=== PATIENT | female | born 1985 | race Asian ===

== ENCOUNTER 2022-03-01 13:46 | Emergency (ER) | payer OTHER, SELFPAY ==
--- NOTE | ~2022-03-01 | CT_ITS ---
EXAMINATION: CT abdomen pelvis w con DATE: 03/01/2022 16:28 INDICATION: lower back/ left lower abd pain TECHNIQUE: Computed tomography (CT) of the abdomen and pelvis was performed with 100 mL Omnipaque-350 intravenous contrast. Automated exposure control and iterative reconstruction technique were employe d. The dose-length product was 177.33 mGy-cm. COMPARISON: None. FINDINGS: Lower thorax: Unremarkable Liver: Mild hepatomegaly Biliary/Gallbladder: Gallbladder is normal. No bile duct dilation. Pancreas: No mass or duct dilation. Spleen: Normal. Adrenals:No mass. Kidneys: No mass, stone, or hydronephrosis. GI tract: Moderate distal esophageal and gastric wall edema. No small or large bowel dilation. Normal appendix. Mesentery/Peritoneum: No ascites, mass, or free air. Retroperitoneum: No mass. Pelvis: Pelvic organs are within normal limits. Soft Tissues: Soft tissues and body wall unremarkable. Bones: No acute osseous finding. IMPRESSION: Esophagitis/gastritis. Mild hepatomegaly. No other acute abdominopelvic process detected. Reviewed, dictated and finalized at location K. ERCIAL SALES CONSULTANT
[2022-03-01 13:47] VITALS: BP 138/83; PULSE 115; RESP 18; TEMP 37.1; O2SAT 100
[2022-03-01 14:14] LABS: Appearance Urine Clear (Clear); Bilirubin Urine Negative (Negative); Blood Urine Negative (Negative); Color Urine Yellow (Yellow); Glucose Urine UA Negative (Negative); Ketones Urine Negative (Negative); Leukocyte Esterase Ur Negative LEU/UL (Negative); Nitrate Urine Negative (Negative); Protein Urine Negative (Negative); Urobilinogen Urine 0.2 mg/dL (<2.0); pH Urine 6.5 (5.0-9.0)
[2022-03-01 14:20] LABS: Add Urine Microscopic? NO
[2022-03-01 14:20] LABS: Alanine Aminotransferase 25 U/L (6-35); Albumin Level 4.7 g/dL (3.5-5.1); Alkaline Phosphatase 71 U/L (38-126); Anion Gap 12 mmol/L (8-16); Aspartate Amino Transferase 25 U/L (14-36); Basophils Absolute Auto 0.1 K/mm3 (0.0-0.1); Basophils Percent Auto 0.5 % (0.2-1.2); Bilirubin,Total 0.5 mg/dL (0.2-1.3); Blood Urea Nitrogen 10 mg/dL (7-17); Calcium 9.1 mg/dL (8.4-10.2); Carbon Dioxide 26 mmol/L (22-30); Chloride 102 mmol/L (98-107); Eosinophils Absolute Auto 0.3 K/mm3 (0-0.3); Eosinophils Percent Auto 2.6 % (0-4.4); Estimated Glomerular Filt Rate > 60; Glucose 103 mg/dL (65-110); Hematocrit 40.1 % (37.0-47.0); Hemoglobin 13.1 g/dL (12.0-15.0); Immature Granulocyte Absolute 0.03 K/mm3 (0.00-0.031); Immature Granulocyte Percent A 0.3 % (0-0.5); Lipase 98 U/L (23-300); Lymphocytes Absolute Auto 2.93 K/mm3 (0.9-3.2); Lymphocytes Percent Auto 29.6 % (18.3-44.2); Mean Corpuscular HGB Conc 32.7 g/dl (32-36); Mean Corpuscular Hemoglobin 30.3 pg (26-34); Mean Corpuscular Volume 92.8 fl (80-100); Mean Platelet Volume 10.9 fl (7.4-10.4); Monocytes Absolute Auto 0.4 K/mm3 (0.1-0.6); Monocytes Percent Auto 4.4 % (2.6-8.5); Neutrophils Absolute Auto 6.2 K/mm3 (1.3-6.7); Neutrophils Percent Auto 62.6 % (45.5-73.1); Platelet Count Result 247 k/mm3 (150-375); Potassium 3.9 mmol/L (3.4-5.0); Red Blood Count 4.32 M/mm3 (4.2-5.4); Sodium 140 mmol/L (137-145); White Blood Count 9.9 K/mm3 (4.5-10.0)
--- NOTE | 2022-03-01 14:59 | ED.ABDPAIN ---
HPI - Abdominal Pain General Chief Complaint: Abdominal Pain <CARYN Galan Last Filed: 03/01/22 20:26> Stated Complaint: abd & lower back pain <CARYN Galan Last Filed: 03/01/22 20:26> Time Seen by Provider: 03/01/22 14:37 <CARYN Galan Last Filed: 03/01/22 20:26> Source: patient <CARYN Galan Last Filed: 03/01/22 20:26> Mode of arrival: ambulatory <CARYN Galan Last Filed: 03/01/22 20:26> Limitations: no limitations <CARYN Galan Last Filed: 03/01/22 20:26> History of Present Illness HPI narrative: Patient is a 36-year-old female who presents the ED with report of lower back and lower abdominal pain. Patient reports having chronic tailbone pain since having a child 1 year ago. She has had worsening pain in her lower back, radiating around to her abdomen over the last 4 days. She has been taking naproxen for her tailbone pain, but denies any relief. She denies any other symptoms, denies nausea, vomiting, diarrhea, constipation, fevers, cough or cold symptoms, dysuria, hematuria, incontinence, numbness, saddle anesthesia. <CARYN Galan Last Filed: 03/01/22 20:26> Related Data Allergies/Adverse Reactions: Allergies Allergy/AdvReac Type Severity Reaction Status Date / Time No Known Allergies Allergy Verified 03/01/22 14:40 <CARYN Galan Last Filed: 03/01/22 20:26> Review of Systems Review of Systems: CONSTITUTIONAL: Denies fever, chills, or sweats. ENT: Denies rhinorrhea, congestion, sore throat. CARDIOVASCULAR: Denies chest pain. RESPIRATORY: Denies cough or dyspnea. GASTROINTESTINAL: Reports lower abdominal pain. Denies incontinence, constipation, nausea, vomiting, or diarrhea. GENITOURINARY: Denies dysuria or hematuria. MUSCULOSKELETAL: Reports lower back pain. NEUROLOGIC: Denies tingling, numbness, or weakness. <Rosalind Salmeron PA-C - Last Filed: 03/01/22 20:26> All systems reviewed & are unremarkable except as noted in HPI and below <Rosalind Salmeron PA-C - Last Filed: 03/01/22 20:26> PMFSH Past Medical History Medical History: Medical History (Updated 03/02/22 @ 00:00 by Yonas Tobar) Coccygeal pain <Rosalind Salmeron PA-C - Last Filed: 03/01/22 20:26> Surgical History Surgical History: Surgical History (Updated 03/01/22 @ 15:02 by Rosalind Salmeron PA-C) History of section <Rosalind Salmeron PA-C - Last Filed: 03/01/22 20:26> Social History Social History: Social History (Updated 03/01/22 @ 15:03 by Rosalind Salmeron PA-C) Smoking status: Never smoker <Rosalind Salmeron PA-C - Last Filed: 03/01/22 20:26> Exam Narrative: GENERAL: Well appearing, well-nourished, non-toxic, in no acute distress. HEAD: Normocephalic, atraumatic. NECK: Supple. No adenopathy, no masses. RESPIRATORY: Airway patent, respirations nonlabored. Clear to auscultation bilaterally, no rales, rhonchi, wheezing. CARDIOVASCULAR: Regular rate and rhythm without murmurs, rubs, or gallops. Peripheral pulses 2+ and equal bilaterally. ABDOMINAL: Soft, minimal epigastric and left lower quadrant abdominal tenderness, no rebound or guarding. Nondistended, no hepatosplenomegaly. Normoactive BS. MUSCULOSKELETAL: Moves all extremities. Strength/ROM intact without gross deformities. Mild tenderness to palpation lumbosacral region. No midline lumbar spinal tenderness. Strength 5 out of 5 in lower extremities bilaterally. SKIN: Warm, dry, normal color. No rashes. NEURO: A&O X3. Speech clear. Cranial nerves II-XII grossly intact. Steady gait. No ataxic movements. PSYCHIATRIC: Appropriate mood and affect. Normal interaction. <Rosalind Salmeron PA-C - Last Filed: 03/01/22 20:26> Course CHIEF SUBSTATION OPERATOR/PA Physician Supervision For this patient encounter, I reviewed the CHIEF SUBSTATION OPERATOR or PA documentation, treatment plan,
[2022-03-01] MEDS: BELLADONNA ALK/PHENOB ELIX 10 ML, MAG HYDROX/ALUMINUM HYD/SIMETH 30 ML, LIDOCAINE HCL 2... PO (17:08)
[2022-03-01 18:23] VITALS: BP 112/79; PULSE 75; RESP 18; O2SAT 99
== END 2022-03-01 18:25 | disposition home or self-care (01) ==
PROVIDERS: Emergency Medicine; Emergency Provider Emergency Medicine; PCP Family Medicine
DX: M54.50 Low back pain, unspecified (principal); K29.00 Acute gastritis without bleeding
CPT/HCPCS: 36415; 74177; 80053; 81003; 81025; 83690; 85025; 99284; A9270; Q9967

== ENCOUNTER → 2022-04-01 15:15 | Outpatient (CLI) | payer OTHER, SELFPAY ==
--- NOTE | ~2022-04-01 | US_ITS ---
EXAMINATION: US soft tissue LE RT DATE: 04/01/2022 15:41 INDICATION: MASS OF LE . TECHNIQUE: Grayscale and Doppler ultrasound images of the right leg were obtained. COMPARISON: None. FINDINGS: Sonographic interrogation of the area of concern in the right anterior thigh reveals a 1.7 x 2.5 cm fascicle of the otherwise normal-appearing subcutaneous fat. No concerning solid or cystic l esions detected. IMPRESSION: The palpable abnormality corresponds to a normal-appearing fascicle of subcutaneous fat. Reviewed, dictated and finalized at location K. CONDUCTOR WAFERS ETCH OPERATOR IMPRESSION: The palpable abnormality corresponds to a normal-appearing fascicle of subcutan eous fat.
== END ==
PROVIDERS: PCP Family Medicine; Visit Provider Family Medicine
DX: R22.41 Localized swelling, mass and lump, right lower limb (principal)
CPT/HCPCS: 76882

== ENCOUNTER 2022-09-04 15:10 | Emergency (ER) | payer OTHER, SELFPAY ==
--- NOTE | ~2022-09-04 | XR_ITS ---
EXAMINATION: XR chest 2V DATE: 09/04/2022 15:34 INDICATION: Cough and shortness of breath TECHNIQUE: PA and lateral views of the chest were obtained. COMPARISON: None FINDINGS: The lungs are clear with no focal airspace opacities, pulmonary edema, pleural effusion or pneumothor ax. The cardiomediastinal silhouette is normal. Visualized bones and soft tissues are unremarkable. IMPRESSION: 1. No acute cardiopulmonary disease. Reviewed, dictated and finalized at location A.
--- NOTE | 2022-09-04 15:16 | ED.URI ---
HPI - URI/Sore Throat General Chief Complaint: Upper Respiratory Infection Stated Complaint: SORE THROAT/CONGESITON/RUNNY NOSE/BODY ACHES/SOB Time Seen by Provider: 09/04/22 15:16 Source: patient Mode of arrival: ambulatory Limitations: no limitations History of Present Illness HPI Narrative: Patient is a 36-year-old female who presents with congestion, cough, sore throat, runny nose, body aches for almost 2 weeks. Reports tested positive for flu B last week. Patient reports worsening symptoms of productive cough and shortness of breath with coughing fits primarily in the morning. Patient has been using [id number] medications with mild relief. Patient states over the 2 weeks symptoms have waxed and waned but has never felt 100%. Denies any fever, chills, nausea, vomiting, diarrhea. Related Data Allergies Allergy/AdvReac Type Severity Reaction Status Date / Time No Known Allergies Allergy Verified 09/04/22 15:19 Review of Systems Review of Systems: All systems reviewed & are unremarkable except as noted in HPI and below Constitutional: Constitutional: Reports body ache(s), Denies chills, Denies fatigue, Denies fever(s), Denies headache(s), Denies malaise and Denies weakness Eyes: Eyes: Denies blurry vision, Denies itchy eyes and Denies loss of vision ENT: Denies otalgia, Denies headache(s), Reports nasal congestion, Reports nasal discharge, Denies sinus pain and Reports sore throat Cardiovascular: Cardiovascular: Denies chest pain, Denies irregular heart rhythm and Denies dyspnea Respiratory: Respiratory: Reports cough and Reports dyspnea on exertion Gastrointestinal: Gastrointestinal: Denies abdominal pain, Denies diarrhea, Denies nausea and Denies vomiting Musculoskeletal: Musculoskeletal: Denies back pain, Denies myalgias and Denies arthralgias Integumentary/Breasts: Skin/Breast: Denies pruritus and Denies rash Neurologic: Denies headache(s), Denies loss of vision and Denies weakness Psychiatric: Psychiatric: Reports no additional psychiatric complaints Endocrine: Endocrine: Denies fatigue Allergic/Immunologic: Allergic/Immunologic: Denies itchy eyes PMFSH Past Medical History Medical History (Updated 09/04/22 @ 15:30 by Evon Zaragoza APRN) Coccygeal pain Surgical History Surgical History (Updated 03/01/22 @ 15:02 by Rosalind Salmeron PA-C) History of section Social History Social History (Updated 03/01/22 @ 15:03 by Rosalind Salmeron PA-C) Smoking status: Never smoker Comments At time of signature, agree with nursing past medical, surgical, social and family history. There is no relevant family history pertinent to the presenting complaint. Exam Const: General: cooperative, healthy appearing, comfortable, no acute distress and well nourished Nutritional Appearance: well nourished Orientation/consciousness: patient oriented x3 Limitations: no limitations HENMT: Head: normal to inspection, normocephalic and atraumatic Ears: hearing grossly normal bilaterally, external ears normal, TM's normal bilaterally, EAC's normal and no periauricular adenopathy Face/Nose/Sinus: Normal external nose present, Abnormal mucous membranes and turbinates present erythematous bilateral and diffuse, normal facial exam, sinuses nontender and face symmetric Face and sinus: normal facial exam, sinuses nontender and face symmetric Mouth: Yes Normal oral and palatal mucosa present, Yes lip normal, Yes tongue normal, Yes Normal salivary glands and ducts present, Yes oropharynx normal and Yes moist mucous membranes Teeth and gingiva: dentition normal Throat: posterior oropharynx normal, tonsils normal and uvula midline Eyes: General: appearance normal, both eyes and all related structures Alignment and Position: alignment normal and position normal Periorbital: periorbital findings normal Eyelids: eyelids normal Pupils: Equal, round and reactive pupils present Neck: Neck: norm
[2022-09-04 15:21] VITALS: BP 110/84; PULSE 95; RESP 16; TEMP 36.8; O2SAT 99
== END 2022-09-04 15:54 | disposition home or self-care (01) ==
PROVIDERS: Emergency Provider Nurse Practitioner Family; PCP Family Medicine
DX: J06.9 Acute upper respiratory infection, unspecified (principal); R05.9 Cough, unspecified
CPT/HCPCS: 71046; 99213; G0463

== ENCOUNTER 2024-05-05 18:40 | Emergency (ER) | payer OTHER, SELFPAY ==
[2024-05-05 18:53] VITALS: BP 103/72; PULSE 66; RESP 16; TEMP 36.4; O2SAT 100
--- NOTE | 2024-05-05 19:09 | ED.FEMALEGU ---
HPI - Female Genitourinary General Chief complaint: Urogenital-Female Stated complaint: uti symptoms Time Seen by Provider: 05/05/24 18:46 Source: patient Mode of arrival: ambulatory Limitations: no limitations History of Present Illness HPI Narrative: Bay is a 38-year-old female patient presenting to the clinic today with complaints of possible urinary tract infection. She reports she has noticed today some urinary frequency. Also reports a very foul odor coming from either her urine or vagina x1 week. States at times she can smell the odor with her clothes on. Denies any vaginal discharge other than her recent menstrual. States she recently had a miscarriage back in February. Last menstrual period was April 26, 2024. She has not been sexually active since her last menstrual period. Denies any new partners. Is in a monogamous relationship and is not concerned about STIs. Related Data Allergies Allergy/AdvReac Type Severity Reaction Status Date / Time No Known Allergies Allergy Verified 05/05/24 18:52 Review of Systems Review of Systems: Pertinent positives per HPI. Patient denies any fever, chills, rash, headache, visual changes, dizziness, cough, runny nose, sore throat, shortness of breath, chest pain, palpitations, nausea, vomiting, diarrhea, constipation, abdominal pain, or any urinary issues. PMFSH Past Medical History Medical History Coccygeal pain Surgical History Surgical History History of section Social History Social History Smoking status: Never smoker Comments At the time of my signature, I reviewed and agree with the nursing past medical, surgical, social, and family history. There is no relevant family history pertinent to the patient complaint. Exam Narrative: General: Well-developed, well nourished, in no apparent distress Head: Normocephalic, atraumatic. Cardio: Regular rate and rhythm, s1 and s2 normal, no murmur appreciated. Resp: Clear to auscultation bilaterally, no rhonchi, rales, wheezing or rubs. Abdomen: Soft, pliable, bowel sounds present in all quadrants, non-tender to palpation, no CVAT tenderness. : Pelvic exam performed with (Lia ARREGUIN) at bedside. Verbal consent obtained from patient. Normal external female genitalia without lesions or masses, Urinary meatus: patent without discharge, Vagina: No lesions or masses, white vaginal discharge noted Cervix: pink without mass, lesions, whitish tinged brown discharge noted coming from the cervical os Adnexa: without palpable mass or tenderness. Course Course Emergency Course: Portions of this record may have been created with voice recognition software. Level of Care: Express Care Visit Vital Signs Vital signs: Vital Signs Temperature 36.4 C 05/05/24 18:53 Pulse Rate 66 05/05/24 18:53 Respiratory Rate 16 05/05/24 18:53 Blood Pressure 103/72 05/05/24 18:53 Pulse Oximetry 100 05/05/24 18:53 Oxygen Delivery Room Air 05/05/24 18:53 Temperature 36.4 C 05/05/24 18:53 Pulse Rate 66 05/05/24 18:53 Respiratory Rate 16 05/05/24 18:53 Blood Pressure 103/72 05/05/24 18:53 Pulse Oximetry 100 05/05/24 18:53 Oxygen Delivery Room Air 05/05/24 18:53 Vital signs reviewed MDM - Female Genitourinary MDM Narrative Medical decision making narrative: At the time of visit patient is resting comfortably on the exam table. Patient appears to be nontoxic. Labs: Urinalysis is negative for any blood or protein. Shows trace of leukocytes. We will send urine for culture. Bedside test was negative. Gonorrhea, chlamydia, Trichomonas, bacterial vaginosis, and genital culture swabs was obtained and sent to the lab Plan: I suspect patient likely has bacterial vaginosis. Prescription for Flagyl was sent to the pharmacy. Patient requesting STI testing after interview-vaginal swabs were sent to the lab. We will send urine for culture and if this comes back positive for any invading bacteria we will place patient on an antibiotic at that time. Supportive measures were discussed with the patient and they voiced understanding discharge instructions and agrees to treatment plan. Return precautions reviewed Differential Diagnosis Differential diagnosis: Likely urinary tract infection, bacterial vaginosis, trichomoniasis, cervicitis, ovarian cyst, vaginitis, ruptured ovarian cyst, cystitis and other Discharge Plan Discharge Clinical Impression: Vaginal odor, Urinary frequency Patient Disposition: Home, Self-Care Condition: Stable Instructions: Antibiotic Form, Vaginal Discharge (ED), Urinary Urgency and Frequency (DC) Additional Instructions: Urinalysis shows a trace of bacteria. We will send urine for culture and if this comes back positive we will contact him place you on an antibiotic for a urinary tract infection Increase fluids and stay well hydrated I suspect he likely had bacterial vaginosis so I will place you on Flagyl to treat this We have tested you for STIs in the clinic today. Chlamydia, gonorrhea, Trichomonas, and a genital culture was sent to the lab Avoid any sexual activity- includes oral, anal, or vaginal intercourse until you get results back and have completed any additional recommended treatment regimens. We will contact you if testing is positive and make sure your treatment was appropriate for the type of STI. If symptoms worsen after treatment recommend reevaluation with your PCP or life consultant Patient Language: Maldivian Prescriptions: New metronidazole 500 mg tablet 500 mg PO Q12H 7 Days Qty: 14 0RF Follow-up/Referrals: Nina,Jose Ramon Florence MD [Primary Care Provider] - Time of Disposition: 19:47 [facility] NIHSS nursing documentation: reviewed/agree
[2024-05-05 19:43] LABS: BEDSIDEPREGUCG Negative (Negative); EDUAAPPEAR Clear; EDUABILI Negative (Negative); EDUABLOOD Negative (Negative); EDUACOLOR1 Yellow; EDUAGLUCOSE Negative (Negative); EDUAKETONE Negative (Negative); EDUALEUKO Trace (Negative); EDUANITRATE Negative (Negative); EDUAPH 6.5; EDUAPROTEIN Negative (Negative); EDUAUROBILI 0.2
[2024-05-06 19:10] LABS: Chlamydia trachomatis NOT DETECTED (NOT DETECTE); Neisseria gonorrhoeae PCR NOT DETECTED (NOT DETECTE)
[2024-05-08 15:13] LABS: Bacterial Vaginosis NEGATIVE (NEGATIVE)
== END 2024-05-05 19:56 | disposition home or self-care (01) ==
PROVIDERS: Emergency Provider Nurse Practitioner Family; PCP Family Medicine
DX: R35.0 Frequency of micturition (principal); N89.8 Other specified noninflammatory disorders of vagina
CPT/HCPCS: 81003; 81025; 81513; 87070; 87086; 87491; 87591; 87661; 99213; G0463

== ENCOUNTER 2024-08-24 17:08 | Emergency (ER) | payer OTHER, SELFPAY ==
--- NOTE | 2024-08-24 17:18 | ED.FEMALEGU ---
HPI - Female Genitourinary General Chief complaint: Urogenital-Female Stated complaint: Uti Symptoms Time Seen by Provider: 08/24/24 17:24 Source: patient, RN notes reviewed and old records reviewed Mode of arrival: ambulatory Limitations: no limitations History of Present Illness HPI Narrative: 38-year-old female presents to the [facility] with concerns for a UTI. Patient reports since Wednesday frequency, urgency, abnormal odor. Did use a vaginal wash externally which help with the odor but still having some frequency urgency burning but urinating relieves the pain. Reports that she took a azo test which made her concern for UTI Had similar symptoms a couple of months ago and was told she had a yeast infection. Onset (ago): day(s) (3) Related Data Allergies Allergy/AdvReac Type Severity Reaction Status Date / Time No Known Allergies Allergy Verified 08/24/24 17:29 Review of Systems Review of Systems: All systems reviewed & are unremarkable except as noted in HPI and below Constitutional: Constitutional: Reports no additional constitutional complaints ENT: Reports system reviewed and no additional complaints, except as documented Cardiovascular: Cardiovascular: Reports no additional cardiovascular complaints, Denies chest pain and Denies dyspnea Respiratory: Respiratory: Reports no additional respiratory complaints, Denies chest congestion, Denies cough and Denies dyspnea Genitourinary: Genitourinary: Reports as per HPI Musculoskeletal: Musculoskeletal: Reports no additional musculoskeletal complaints Integumentary/Breasts: Skin/Breast: Reports system reviewed and no additional complaints, except as docu PMFSH Past Medical History Medical History Coccygeal pain Surgical History Surgical History History of section Social History Social History Smoking status: Never smoker Comments At the time of my signature, I reviewed and agree with the nursing past medical, surgical, social, and family history. There is no relevant family history pertinent to the patient complaint. Exam Const: General: cooperative, healthy appearing, comfortable, no acute distress, well developed, alert and well nourished Nutritional Appearance: well nourished Orientation/consciousness: patient oriented x3 Limitations: no limitations HENMT: Head: normal to inspection Eyes: General: appearance normal, both eyes and all related structures Alignment and Position: alignment normal Neck: Neck: normal visual inspection, full ROM, no lymphadenopathy and no meningeal signs Chest: Chest palpation & inspection: normal inspection of the chest Resp: Effort & Inspection: normal respiratory effort and able to speak in complete sentences Auscultation: clear to auscultation bilaterally, no crackles, no rales, no rhonchi and no wheezes Cardio: Rate: regular rate GI: GI Palp: No abdominal tenderness Skin: General skin exam: normal color and no rashes or lesions noted Neuro: General: patient oriented x3, gait normal, moves all extremities and no meningeal signs Cognition (Neuro): normal cognition Speech: normal speech Gait exam (Neuro): Normal gait present Extrem: General: normal to inspection, full ROM, capillary refill normal and normal gait Psych: Appearance: grossly normal and well kempt Mental Status: mental status grossly normal Speech and movement: Normal speech and movement present and Clear speech present Affect: normal affect Attitude: cooperative Course Course Level of Care: Express Care Visit Vital Signs Vital signs: Vital Signs Temperature 98.3 F 08/24/24 17:19 Pulse Rate 88 08/24/24 17:19 Respiratory Rate 16 08/24/24 17:19 Blood Pressure 100/68 08/24/24 17:19 Pulse Oximetry 100 08/24/24 17:19 Temperature 98.3 F 08/24/24 17:19 Pulse Rate 88 08/24/24 17:19 Respiratory Rate 16 08/24/24 17:19 Blood Pressure 100/68 08/24/24 17:19 Pulse Oximetry 100 08/24/24 17:19 Oxygen Delivery Room Air 08/24/24 17:20 Reviewed MDM - Female Genitourinary MDM Narrative Medical decision making narrative: Patient sitting in exam room. Nontoxic vitals stable. Patient presents with concerns for UTI due to azo test. Urine dip is negative. Discussed results with patient, patient is concerned that she might have a yeast infection states that she had the same exact symptoms back in February. Patient has a call out to her wheel polisher provider Will treat with Diflucan after discussion with patient. Will encourage patient to follow-up with wheel polisher Discharge instructions reviewed with patient, as well as provided in writing per nursing staff. The instructions also include specific and strict return/GO TO THE ER as well as f/u information. All questions have been answered, and the patient deny any further questions with discharge and discharge plan. Some parts of this dictation were generated by voice recognition software and may contain typographical and/or grammatical inaccuracies. Differential Diagnosis Differential diagnosis: Likely urinary tract infection, bacterial vaginosis, trichomoniasis and other (yeast) Lab Data Labs: Lab Results 08/24/24 Range/Units 17:24 POC Urine Color Yellow POC Urine Clarity Clear POC Urine pH 7.0 POC Ur Specif [place] 1.015 POC Urine Protein Negative (Negative) POC Ur Glucose (UA) Negative (Negative) POC Urine Ketones Negative (Negative) POC Urine Blood Negative (Negative) POC Urine Nitrite Negative (Negative) POC Urine Bilirubin Negative (Negative) POC Urine Urobilinogen 0.2 POC U Leukocyte Esteras Negative (Negative) Review Critical Care Time Critical Care Time Critical Care Time: No Discharge Plan Discharge Clinical Impression: Frequency of urination Patient Disposition: Home Condition: Stable Instructions: Yeast Infection (ED) Additional Instructions: Follow-up with primary care provider as needed Follow-up with wheel polisher provider. Patient Language: Vietnamese Prescriptions: New fluconazole 150 mg tablet 150 mg PO ONCE Qty: 1 0RF Rx Instructions: as a single dose No Action metronidazole 500 mg tablet 500 mg PO Q12H 7 Days Qty: 14 0RF fluconazole 150 mg tablet 150 mg PO ONCE Qty: 2 0RF Rx Instructions: as a single dose after antibiotics are complete. If symptoms persist, take second dose 3 days later. Follow-up/Referrals: PHYSICIAN,HAIRSPRING VIBRATOR [Primary Care Provider] - Time of Disposition: 17:36
[2024-08-24 17:19] VITALS: BP 100/68; PULSE 88; RESP 16; TEMP 36.8; O2SAT 100
[2024-08-24 17:26] LABS: EDUAAPPEAR Clear; EDUABILI Negative (Negative); EDUABLOOD Negative (Negative); EDUACOLOR1 Yellow; EDUAGLUCOSE Negative (Negative); EDUAKETONE Negative (Negative); EDUALEUKO Negative (Negative); EDUANITRATE Negative (Negative); EDUAPROTEIN Negative (Negative); EDUASPGRAVITY 1.015; EDUAUROBILI 0.2
== END 2024-08-24 17:39 | disposition home or self-care (01) ==
PROVIDERS: Emergency Provider Nurse Practitioner
DX: R35.0 Frequency of micturition (principal)
CPT/HCPCS: 81003; 99213; G0463